=== PATIENT | female | born 1960 | race American Indian/Alaskan Native ===

== ENCOUNTER 2018-03-29 09:48 | Day surgery (SDC) | payer OTHER ==
[2018-03-22 16:32] VITALS: BMI 33.2
[2018-03-29 10:29] VITALS: TEMP 98.2
[2018-03-29] MEDS ORDERED: PROPOFOL 20 ML ONE ×2 (10:45)
[2018-03-29 12:32] VITALS: BP 135/74; PULSE 78
--- NOTE | 2018-03-31 15:54 | PATH ---
Surgical Pathology Report Patient Name: GLADIS GARZA [facility]. Rec. #: [id number] /Age/Gender: 1960 (Age: 57) / F Account: [id number] Location: [facility] Taken: 03/29/2018 Received: 03/29/2018 Reported: 03/31/2018 Physicians: Sam Vega M.D. Specimen(s) Received A: BX DUODENUM B: BX ANTRUM C: BODY Clinical History Peptic ulcer disease Postoperative diagnosis: Rule out celiac disease, gastritis, atrophic gastritis Final Diagnosis A. DUODENUM, BIOPSY: DUODENUM MUCOSA WITH FOCAL INCREASED CHRONIC INFLAMMATORY CELL INFILTRATE IN THE LAMINA PROPRIA. NO HISTOLOGIC EVIDENCE OF CELIAC DISEASE. B. ANTRUM, BIOPSY: GASTRIC MUCOSA WITH CHRONIC GASTRITIS. IMMUNOSTAIN FOR H. PYLORI IS NEGATIVE. NEGATIVE FOR INTESTINAL METAPLASIA. C. BODY, BIOPSY: GASTRIC MUCOSA SHOWING ACTIVE CHRONIC GASTRITIS WITH INTESTINAL METAPLASIA. IMMUNOSTAIN IS POSITIVE FOR H. PYLORI ORGANISMS. Electronically Signed Santosh Mejia M.D. Gross Description A. Received in formalin, labeled "duodenum" is a louis, irregular portion of soft tissue measuring 0.3 cm. in greatest dimension. The specimen is submitted in toto in one cassette. B. Received in formalin, labeled "antrum" are 2 louis, irregular portions of soft tissue averaging 0.5 cm. in greatest dimension. The specimens are submitted in toto in one cassette. C. Received in formalin, labeled "body" are 2 louis, irregular portions of soft tissue measuring 0.3 and 0.4 cm. in greatest dimension. The specimens are submitted in toto in one cassette. /03/30/2018 saudi/03/30/2018
== END 2018-03-29 12:15 | disposition home or self-care (01) ==
LOC: FASU-ENDO 09:48
PROVIDERS: ATTEND Internal Medicine Gastroenterology
PROC: 0DB98ZX Excision of Duodenum, Via Natural or Artificial Opening Endoscopic, Diagnostic (ICD-10-PCS; principal; 2018-03-29 11:07)
PROC: 0DB68ZX Excision of Stomach, Via Natural or Artificial Opening Endoscopic, Diagnostic (ICD-10-PCS; 2018-03-29 11:07)
DX: R10.12 Left upper quadrant pain (principal); K29.50 Unspecified chronic gastritis without bleeding; B96.81 Helicobacter pylori [H. pylori] as the cause of diseases classified elsewhere
CPT/HCPCS: 82962; 88305-TC; 88342-TC

== ENCOUNTER 2022-09-09 23:23 | Emergency (ER) | payer OTHER ==
[2022-09-09 23:35] VITALS: BP 157/74; PULSE 76; RESP 16; TEMP 98; BMI 31.2
[2022-09-09] MEDS ORDERED: ONDANSETRON 4 MG/2 ML VIAL IVPUSH ONE (23:54)
[2022-09-09] MEDS ORDERED: SODIUM CHLORIDE 1,000 ML IV STA (23:54)
[2022-09-10] MEDS ORDERED: ONDANSETRON 4 MG/2 ML VIAL ONE (00:08)
[2022-09-10 00:35] LABS: BASO % 0.6 % (0-2.0); EOS % 1.1 % (0-4.5); HEMATOCRIT 35.3 % (32.4-45.2); HEMOGLOBIN 12.2 GM/dL (10.7-15.3); LYMPH % 13.8 % (8-40); MCH 26.2 pg (25.7-33.7); MCHC 34.6 g/dl (32.0-36.0); MEAN CELL VOLUME 75.9 fl (80-96); MEAN PLT VOLUME 7.1 fl (7.5-11.1); MONO % 5.1 % (3.8-10.2); NEUT % 79.4 % (42.8-82.8); PLATELET COUNT 298 10^3/uL (134-434); RBC 4.65 M/mm3 (3.60-5.2); RDW 14.8 % (11.6-15.6)
[2022-09-10 00:56] LABS: ALBUMIN 3.6 g/dl (3.4-5.0); CALCIUM 8.8 mg/dL (8.5-10.1)
[2022-09-10 00:57] LABS: BLOOD UREA NITROGEN 5.1 mg/dL (7-18)
[2022-09-10 00:59] LABS: CREATININE 0.4 mg/dL (0.55-1.3)
[2022-09-10 01:01] LABS: BILIRUBIN,TOTAL 0.7 mg/dL (0.2-1); TOT PROT 6.8 g/dl (6.4-8.2)
[2022-09-10 02:52] LABS: BLOOD UREA NITROGEN 4.9 mg/dL (7-18); CALCIUM 8.4 mg/dL (8.5-10.1); CREATININE 0.4 mg/dL (0.55-1.3)
== END 2022-09-10 02:58 | disposition home or self-care (01) ==
LOC: FER 23:23
PROC: 3E033GC Introduction of Other Therapeutic Substance into Peripheral Vein, Percutaneous Approach (ICD-10-PCS; principal; 2022-09-09)
DX: R11.2 Nausea with vomiting, unspecified (principal); E87.1 Hypo-osmolality and hyponatremia
CPT/HCPCS: 36415; 80048; 80053; 85025; 99284-25

== ENCOUNTER 2023-05-01 23:49 | Emergency (ER) | payer OTHER ==
[2023-05-01 23:54] VITALS: BMI 31.2
[2023-05-02 00:07] VITALS: BP 175/84; PULSE 98; RESP 18; TEMP 98.9
[2023-05-02 01:03] LABS: EPI CELLS 3 /uL (0-25.1); HYALINE CASTS 0 /uL (0-3.1); URINE APPEARANCE CLOUDY; URINE BACTERIA >9,000 /uL (0-1359); URINE BILIRUBIN NEGATIVE (NEGATIVE); URINE COLOR YELLOW; URINE GLUCOSE (UA) TRACE (NEGATIVE); URINE KETONE NEGATIVE (NEGATIVE); URINE LEUK ESTERASE 3+ (NEGATIVE); URINE NITRITE NEGATIVE (NEGATIVE); URINE PROTEIN NEGATIVE (NEGATIVE); URINE RBC 63 /uL (0-23.9); URINE UROBILINOGEN 0.2 mg/dL (0.2-1.0); URINE WBC 1230 /uL (0-25.8)
[2023-05-02] MEDS ORDERED: CIPROFLOXACIN 500 MG TABLET (RESTRICTED TO ID) PO ONE (01:17)
[2023-05-02] MEDS ORDERED: CIPROFLOXACIN 250 MG TABLET (RESTRICTED TO ID) PO ONE (01:20)
== END 2023-05-02 01:33 | disposition home or self-care (01) ==
LOC: FER 23:49
DX: R30.9 Painful micturition, unspecified (principal); R35.0 Frequency of micturition; N30.00 Acute cystitis without hematuria
CPT/HCPCS: 81003; 87086; 87186; 99283-25

== ENCOUNTER 2023-07-10 13:41 | Emergency (ER) | payer OTHER ==
[2023-07-10 14:15] VITALS: BP 156/80; PULSE 83; RESP 18; TEMP 99.4; BMI 33.2
[2023-07-10] MEDS ORDERED: SODIUM CHLORIDE 0.9% 500 ML INFUS.BAG IV ONE (15:00)
[2023-07-10] MEDS ORDERED: MECLIZINE HCL 25 MG TABLET (FP) PO ONE (15:00)
[2023-07-10] MEDS ORDERED: MECLIZINE HCL 25 MG TABLET (FP) ONE (15:14)
[2023-07-10 15:44] LABS: HEMATOCRIT 40.3 % (32.4-45.2); HEMOGLOBIN 13.4 G/dL (10.7-15.3); MCH 26.3 pg (25.7-33.7); MCHC 33.1 g/dl (32.0-36.0); MEAN CELL VOLUME 79.4 fl (80-96); RBC 5.07 10^6/uL (3.60-5.2); RDW 16.3 % (11.6-15.6); WHITE BLOOD COUNT 7.4 10^3/uL (4.0-10.8)
[2023-07-10 16:12] LABS: INR 1.1 (0.83-1.09); PROTHROMBIN TIME (PATIENT) 12.7 SEC (9.7-13.0)
[2023-07-10 16:15] LABS: ACTIVATED PTT 27.9 SECONDS (25.2-36.5)
[2023-07-10 16:22] LABS: ALBUMIN 4.4 g/dl (3.4-5.0); BILIRUBIN,TOTAL 0.4 mg/dl (0.2-1); CREATININE 0.6 mg/dl (0.6-1.3); MAGNESIUM 1.7 mg/dL (1.8-2.4); PHOSPHOROUS 3.2 (2.5-4.9); POTASSIUM 3.5 mmol/L (3.5-5.1); TOT PROT 6.4 g/dl (6.4-8.2)
[2023-07-10 16:42] LABS: PLATELET ESTIMATE ADEQUATE
== END 2023-07-10 17:05 | disposition home or self-care (01) ==
LOC: FER 13:41
DX: R42 Dizziness and giddiness (principal); Z20.822 Contact with and (suspected) exposure to COVID-19
CPT/HCPCS: 0241U-QW; 36415; 70450-TC; 80053; 81003; 83735; 84100; 84484; 85027; 85610; 85730; 87086; 93005; 99285-25

== ENCOUNTER 2023-08-31 18:01 | Observation (INO) | payer OTHER ==
[2023-08-31 19:33] LABS: EPITHELIAL CELLS 0-5 /hpf
[2023-08-31 19:57] LABS: HEMATOCRIT 35.1 % (32.4-45.2); HEMOGLOBIN 11.8 G/dL (10.7-15.3); MCH 26.8 pg (25.7-33.7); MCHC 33.6 g/dl (32.0-36.0); MEAN CELL VOLUME 79.6 fl (80-96); MEAN PLT VOLUME 8.1 fl (7.5-11.1); PLATELET COUNT 259.8 10^3/uL (134-434); RBC 4.41 10^6/uL (3.60-5.2); RDW 15.6 % (11.6-15.6); WHITE BLOOD COUNT 10.6 10^3/uL (4.0-10.8)
[2023-08-31] MEDS ORDERED: ONDANSETRON 4 MG/2 ML VIAL ONE (19:58)
[2023-08-31] MEDS ORDERED: FAMOTIDINE 20 MG/50 ML IVPB 20 MG/50 ML MG IVPB ONE (19:59)
[2023-08-31] MEDS ORDERED: MECLIZINE HCL 25 MG TABLET (FP) ONE (19:59)
[2023-08-31 20:03] LABS: PLATELET ESTIMATE ADEQUATE
[2023-08-31] MEDS: SODIUM CHLORIDE 1,000 ML IV ONE (20:03)
[2023-08-31] MEDS: ONDANSETRON 4 MG/2 ML VIAL IVPB ONE (20:03)
[2023-08-31] MEDS: MECLIZINE HCL 25 MG TABLET (FP) PO ONE (20:03)
[2023-08-31] MEDS: FAMOTIDINE 20 MG/50 ML IVPB 20 MG/50 ML MG IVPB ONE (20:03)
[2023-08-31 20:17] LABS: ALBUMIN 4.2 g/dl (3.4-5.0); BILIRUBIN,TOTAL 0.7 mg/dl (0.2-1); CALCIUM 9.1 mg/dl (8.5-10.1); CREATININE 0.5 mg/dl (0.6-1.3); POTASSIUM 3.7 mmol/L (3.5-5.1); TOT PROT 6.2 g/dl (6.4-8.2)
[2023-08-31 23:01] LABS: CALCIUM 8.7 mg/dl (8.5-10.1); CREATININE 0.5 mg/dl (0.6-1.3); POTASSIUM 3.4 mmol/L (3.5-5.1)
[2023-08-31] MEDS ORDERED: ONDANSETRON 4 MG/2 ML VIAL IVPUSH PRN (23:53)
[2023-09-01] MEDS ORDERED: TRIMETHOBENZAMIDE HCL 200MG/2ML INJ IM PRN (00:32)
[2023-09-01 01:11] VITALS: BMI 33.4
[2023-09-01] MEDS ORDERED: MECLIZINE HCL 25 MG TABLET (FP) PO PRN (07:29)
[2023-09-01 09:21] LABS: CALCIUM 9.1 mg/dl (8.5-10.1); CREATININE 0.5 mg/dl (0.6-1.3); POTASSIUM 3.6 mmol/L (3.5-5.1)
[2023-09-01 09:50] LABS: BASO % 0.2 % (0-2.0); EOS % 1.5 % (0-4.5); HEMATOCRIT 33.1 % (32.4-45.2); HEMOGLOBIN 11.5 GM/dL (10.7-15.3); LYMPH % 16.5 % (8-40); MCH 26.7 pg (25.7-33.7); MCHC 34.8 g/dl (32.0-36.0); MEAN CELL VOLUME 76.7 fl (80-96); MEAN PLT VOLUME 7.4 fl (7.5-11.1); MONO % 6.1 % (3.8-10.2); NEUT % 75.7 % (42.8-82.8); PLATELET COUNT 311 10^3/uL (134-434); RBC 4.32 M/mm3 (3.60-5.2); RDW 14.9 % (11.6-15.6); WHITE BLOOD COUNT 9.5 K/mm3 (4.0-10.0)
[2023-09-01] MEDS: SERTRALINE HCL 50 MG TABLET (FP) PO SCH (11:03)
[2023-09-01] MEDS: ASCORBIC ACID 500 MG TABLET (FP) PO SCH (11:03)
[2023-09-01] MEDS: CHOLECALCIFEROL (VIT D3) 1,000 UNIT (25 MCG) TABLET PO SCH (11:03)
[2023-09-01] MEDS: FENOFIBRIC ACID 135 MG CAP PO SCH (11:03)
[2023-09-01] MEDS: FLUTICASONE PROP 0.05% 16 GM NASAL SPRAY NS SCH (11:06)
[2023-09-01 13:03] LABS: ALBUMIN 4.2 g/dl (3.4-5.0); BILIRUBIN,TOTAL 0.5 mg/dl (0.2-1); CALCIUM 9.2 mg/dl (8.5-10.1); CREATININE 0.5 mg/dl (0.6-1.3); POTASSIUM 3.5 mmol/L (3.5-5.1); TOT PROT 6.3 g/dl (6.4-8.2)
[2023-09-01] MEDS: INSULIN ASPART SLIDING SCALE (NOVOLOG) 1 VIAL SQ SCH (16:41)
[2023-09-01] MEDS: FERROUS SO4 325 MG TABLET (FP) PO SCH (17:55)
[2023-09-01] MEDS: ATORVASTATIN CA 10 MG TABLET (FP) PO SCH (22:19)
[2023-09-01] MEDS: risperiDONE 1 MG TABLET PO SCH (22:20)
[2023-09-01 22:51] LABS: CALCIUM 8.7 mg/dl (8.5-10.1); CREATININE 0.4 mg/dl (0.6-1.3); POTASSIUM 3.5 mmol/L (3.5-5.1)
[2023-09-02] MEDS ORDERED: SODIUM CHLORIDE 1,000 ML IV SCH (07:30)
[2023-09-02 07:55] LABS: HEMATOCRIT 35.6 % (32.4-45.2); HEMOGLOBIN 11.9 G/dL (10.7-15.3); MCH 26.5 pg (25.7-33.7); MCHC 33.3 g/dl (32.0-36.0); MEAN CELL VOLUME 79.4 fl (80-96); MEAN PLT VOLUME 7.9 fl (7.5-11.1); PLATELET COUNT 266.1 10^3/uL (134-434); RBC 4.48 10^6/uL (3.60-5.2); RDW 15.5 % (11.6-15.6); WHITE BLOOD COUNT 8.5 10^3/uL (4.0-10.8)
[2023-09-02 08:24] LABS: CALCIUM 9.4 mg/dl (8.5-10.1); CREATININE 0.4 mg/dl (0.6-1.3); MAGNESIUM 1.8 mg/dL (1.8-2.4); PHOSPHOROUS 3.4 (2.5-4.9); POTASSIUM 3.6 mmol/L (3.5-5.1)
[2023-09-02] MEDS: ENALAPRIL MALEATE 5 MG TABLET PO SCH (11:32)
[2023-09-02] MEDS: ENOXAPARIN NA (PORCINE) 40 MG/0.4 ML DISP.SYRIN SQ SCH (11:32)
[2023-09-02 18:52] LABS: CALCIUM 9.7 mg/dl (8.5-10.1); CREATININE 0.5 mg/dl (0.6-1.3); POTASSIUM 3.5 mmol/L (3.5-5.1)
[2023-09-02 20:19] LABS: CALCIUM 9.2 mg/dl (8.5-10.1); CREATININE 0.5 mg/dl (0.6-1.3); POTASSIUM 3.5 mmol/L (3.5-5.1)
[2023-09-02] MEDS ORDERED: INSULIN ASPART SLIDING SCALE (NOVOLOG) 1 VIAL SQ ONE (21:44)
[2023-09-03 02:12] VITALS: RESP 20
[2023-09-03 08:03] LABS: HEMATOCRIT 33.3 % (32.4-45.2); HEMOGLOBIN 10.8 G/dL (10.7-15.3); MCHC 32.3 g/dl (32.0-36.0); MEAN CELL VOLUME 80.4 fl (80-96); MEAN PLT VOLUME 7.9 fl (7.5-11.1); PLATELET COUNT 254.1 10^3/uL (134-434); RBC 4.14 10^6/uL (3.60-5.2); RDW 15.4 % (11.6-15.6); WHITE BLOOD COUNT 5.9 10^3/uL (4.0-10.8)
[2023-09-03 08:46] LABS: CALCIUM 8.8 mg/dl (8.5-10.1); CREATININE 0.5 mg/dl (0.6-1.3); POTASSIUM 3.7 mmol/L (3.5-5.1)
[2023-09-03 09:38] VITALS: BP 148/64; PULSE 92; TEMP 98.8
== END 2023-09-03 14:00 | disposition home or self-care (01) ==
LOC: FER 18:01 → FM/S 23:47
PROVIDERS: ADMIT Internal Medicine; ATTEND Internal Medicine
PROC: 3E033GC Introduction of Other Therapeutic Substance into Peripheral Vein, Percutaneous Approach (ICD-10-PCS; principal; 2023-08-31)
PROC: 3E023GC Introduction of Other Therapeutic Substance into Muscle, Percutaneous Approach (ICD-10-PCS; 2023-08-31)
PROC: 3E013VG Introduction of Insulin into Subcutaneous Tissue, Percutaneous Approach (ICD-10-PCS; 2023-08-31)
PROC: 3E0337Z Introduction of Electrolytic and Water Balance Substance into Peripheral Vein, Percutaneous Approach (ICD-10-PCS; 2023-08-31)
DX: E87.1 Hypo-osmolality and hyponatremia (principal); E87.8 Other disorders of electrolyte and fluid balance, not elsewhere classified; R42 Dizziness and giddiness; E11.9 Type 2 diabetes mellitus without complications; I10 Essential (primary) hypertension; F32.A Depression, unspecified; Z88.0 Allergy status to penicillin
CPT/HCPCS: 36415; 80048; 80053; 81003; 81015; 82436; 82533; 82962; 83735; 83930; 83935; 84100; 84133; 84295; 84300; 84443; 84484; 85025; 85027; 87086; 87186; 93005; 96361; 96365; 96367; 96372; 96375; 97116-GP; 97162-GP; 99285-25; G0378; J2597